=== PATIENT | female | born 1985 | race Caucasian/White ===

== ENCOUNTER 2017-12-15 03:44 | Inpatient (IN) | payer OTHER ==
[2017-12-15] MEDS ORDERED: OXYTOCIN 10 UNIT/ML 1 ML VIAL IM PRN (04:34)
[2017-12-15] MEDS ORDERED: LIDOCAINE 1% (PF) 10 MG/ML (30 ML SDV) SQ PRN (04:34)
[2017-12-15] MEDS ORDERED: CARBOPROST TROMETHAMINE 250 MCG/ML 1 ML AMP IM PRN (04:34)
[2017-12-15] MEDS ORDERED: AMPICILLIN 2,000 MG in SODIUM CHLORIDE 0.9% 100 ML IVPB STA (04:34)
[2017-12-15] MEDS ORDERED: TERBUTALINE 1 MG/ML VIAL SQ PRN (04:34)
[2017-12-15] MEDS ORDERED: METHYLERGONOVINE 0.2 MG/ML 1 ML AMP IM PRN (04:34)
[2017-12-15] MEDS ORDERED: OXYTOCIN 20 UNITS/1000 ML NS 1,000 ML IV SCH ×2 (04:45→16:30)
[2017-12-15 05:18] VITALS: BMI 25.7
[2017-12-15 05:18] LABS: Appearance,Urine Cloudy (Clear); Bilirubin,Urine Negative (Negative); Blood,Urine Trace (Negative); Color,Urine Yellow; Glucose,Urine (UA) Negative (Negative); Ketones,Urine Negative (Negative); Leukocyte Esterase,Urine Negative (Negative); Mucus,Urine Rare /hpf; Nitrite,Urine Negative (Negative); PH, Urine 6.5 (5.0-8.0); Protein,Urine Trace (Negative); RBC,Urine 1 /hpf (0-5); Specific Gravity,Urine 1.019 (1.001-1.035); Squamous Epithelial Cell,Urine 7 /hpf (0-4); Urobilinogen,Urine <2.0 mg/dL (<2.0); WBC,Urine 2 /hpf (0-5)
[2017-12-15 05:22] LABS: Amphetamine Screen,Urine Detected (NotDetected); Barbiturate Screen,Urine Not Detected (NotDetected); Benzodiazepines Screen,Urine Not Detected (NotDetected); Cocaine Screen,Urine Not Detected (NotDetected); Methadone Screen, Urine Not Detected (NotDetected); Opiate Screen,Urine Not Detected (NotDetected); Oxycodone Screen, Urine Not Detected (NotDetected); Phencyclidine Screen,Urine Not Detected (NotDetected); Tricyclic Antidepressant,Urine Not Detected (NotDetected); Urn Cannabinoid Scrn Not Detected (NotDetected)
[2017-12-15 05:39] LABS: Basophils # (A) 0.1 k/uL (0-0.2); Basophils % (A) 1 %; Eosinophils # (A) 0.1 k/uL (0-0.7); Eosinophils % (A) 1 %; HCT 38.1 % (34.0-46.0); HGB 13.1 gm/dL (11.4-16.0); Lymphocytes # (A) 1.9 k/uL (1.0-4.8); Lymphocytes % (A) 24 %; MCH 32.8 pg (25.0-35.0); MCHC 34.4 g/dL (31.0-37.0); MCV 95.3 fL (80.0-100.0); Monocytes # (A) 0.6 k/uL (0-1.0); Monocytes % (A) 8 %; Neutrophils % (A) 63 %; Platelet Count 218 k/uL (150-450); RDW 13.2 % (11.5-15.5)
[2017-12-15] MEDS: LACTATED RINGERS 1,000 ML IV SCH ×2 (05:44→12:22)
--- NOTE | 2017-12-15 07:55 | P.HPOB ---
History of Present Illness H&P Date: 12/15/17 Chief Complaint: Rupture of membranes This is a 32-year-old female 1 para 0 with an estimated date of confinement of 01/03/2018, estimated gestational age of 37-2/7 weeks, who presented to labor and delivery with complaints of spontaneous rupture of membranes with clear fluid noted. She denies any regular contractions. She did receive some care at a clinic in [place] all she was incarcerated and for a couple visits after incarceration. She states all of her labs were normal during her . We did receive some records from her previous physician but there very difficult to read and many parts are blacked out so they are on readable. It appears her last visit there was an approximately 29 weeks. Obstetrical history: . Gynecologic history: She denies any history of sexual transmitted diseases. 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 She denies any other street drug use however her drug screen is positive for amphetamines and methamphetamines. She does deny using any of these drugs. Review of Systems Constitutional: Denies chills, Denies fever Eyes: denies blurred vision, denies pain Ears, nose, mouth and throat: Denies headache, Denies sore throat Cardiovascular: Denies chest pain, Denies shortness of breath Gastrointestinal: Denies abdominal pain, Denies diarrhea, Denies nausea, Denies vomiting Genitourinary: Reports pelvic pain, Reports , Denies dysuria, Denies hematuria Musculoskeletal: Reports low back pain Neurological: Denies numbness, Denies weakness Psychiatric: Denies anxiety, Denies depression Endocrine: Denies fatigue Past Medical History Past Medical History: No Reported History History of Any Multi-Drug Resistant Organisms: MRSA Date of last positivie culture/infection: 2016 MDRO Source:: right wrist Additional Past Surgical History / Comment(s): surgery in right wrist, MRSA r/t IV drug use. 2016 Past Anesthesia/Blood Transfusion Reactions: No Reported Reaction Past Psychological History: ADD/ADHD Smoking Status: Current every day smoker Past Alcohol Use History: None Reported Past Drug Use History: Heroin, IV Drug Use Additional Drug Use History / Comment(s): pt reports using for 6 months, but has been clean for the last 3 years. - Past Family History Mother Family Medical History: No Reported History Medications and Allergies Home Medications Medication Instructions Recorded Confirmed Type RX: Pnv No.95/Ferrous Fum/Folic AC 1 tab PO DAILY 12/15/17 12/15/17 History [ Multivitamin Tablet] Allergies Allergy/AdvReac Type Severity Reaction Status Date / Time No Known Allergies Allergy Verified 12/15/17 04:21 Exam Osteopathic Statement: *. No significant issues noted on an osteopathic structural exam other than those noted in the History and Physical/Consult. - Vital Signs Vital signs: Vital Signs Temp Pulse Resp BP Pulse Ox 12/15/17 05:08 16 12/15/17 05:06 97.0 F L 99 16 132/91 96 12/15/17 04:12 97.5 F L 86 16 132/85 100 Intake and Output 12/14/17 12/15/17 12/15/17 22:59 06:59 14:59 Other: Voiding Method Toilet # Voids 1 Weight 63.957 kg HEENT: Within normal limits Heart: Regular rate and rhythm Lungs: Clear to auscultation bilaterally Abdomen: Cervix: 1-1/2 cm/60-70%/-2 stationn positive amnisure on admission heart tones: Reactive Contractions: Irregular Results Result Diagrams: 12/15/17 05:15 12/15/17 05:15 Abnormal Lab Results - Last 24 Hours (Table) 12/15/17 12/15/17 Range/Units 04:50 04:50 Urine Appearance Cloudy H (Clear) Urine Protein Trace H (Negative) Urine Blood Trace H (Negative) Ur Squamous Epith Cells 7 H (0-4) /hpf Urine Mucus Rare H (None) /hpf Ur Amphetamines Screen Detected H (NotDetected) U Methamphetamines Scrn Detected H (NotDetected) Assessment and Plan (1) 37 weeks gestation of Current Visit: Yes Status: Acute Code(s): Z3A.37 - 37 WEEKS GESTATION OF SNOMED Code(s): 32858093 Plan: Admission for spontaneous rupture of membranes. Oxytocin augmentation of labor. Epidural anesthesia if desired. Will consult social work due to positive drug screen and limited care.
[2017-12-15] MEDS: BUTORPHANOL 1 MG/ML 1 ML VIAL IV PRN ×2 (08:24→10:45)
[2017-12-15] MEDS: AMPICILLIN 1,000 MG in SODIUM CHLORIDE 0.9% 50 ML IVPB SCH ×2 (08:52→13:58)
[2017-12-15] MEDS ORDERED: fentaNYL (PF) 50 MCG/ML 5 ML AMP ONE (12:00)
[2017-12-15] MEDS ORDERED: SODIUM CHLORIDE 0.9% 100 ML BAG ONE (12:00)
[2017-12-15] MEDS ORDERED: BUPIVACAINE (PF) 0.25% 30 ML VIAL ONE (12:00)
[2017-12-15] MEDS ORDERED: ROPIVACAINE 100 MG, fentaNYL (PF) 200 MCG in SODIUM CHLORIDE 0.9% 76 ML EPIDURAL ONE (12:09)
[2017-12-15 13:24] LABS: HIV AB P24 Non-Reactive (Non-Reactive); HIV P24 AG Non-Reactive (Non-Reactive)
[2017-12-15] MEDS ORDERED: WITCH HAZEL 1 EACH MED..PAD TOPICAL PRN (16:28)
[2017-12-15] MEDS ORDERED: HYDROCORTISONE 2.5% RECTAL CREAM 30 GM TUBE RECTAL PRN (16:28)
[2017-12-15] MEDS ORDERED: diphenhydrAMINE 50 MG/ML 1 ML VIAL IVP PRN ×2 (16:28)
[2017-12-15] MEDS ORDERED: ZOLPIDEM 5 MG TAB PO PRN (16:28)
[2017-12-15] MEDS ORDERED: ACETAMINOPHEN TAB 325 MG TAB PO PRN (16:28)
[2017-12-15] MEDS ORDERED: diphenhydrAMINE 25 MG CAP PO PRN (16:28)
[2017-12-15] MEDS ORDERED: SIMETHICONE 80 MG CHEWABLE PO PRN (16:28)
[2017-12-15] MEDS ORDERED: LANOLIN CREAM 5 GM TUBE TOPICAL PRN (16:28)
[2017-12-15] MEDS ORDERED: diphenhydrAMINE 50 MG CAP PO PRN (16:28)
[2017-12-15] MEDS ORDERED: BENZOCAINE/MENTHOL SPRAY 1 GM/SPRAY AEROSOL TOPICAL PRN (16:28)
[2017-12-15] MEDS: IBUPROFEN 600 MG TAB PO PRN (19:15)
[2017-12-15] MEDS: SENNOSIDES-DOCUSATE SODIUM 1 EACH TAB PO SCH (20:04)
--- NOTE | 2017-12-15 21:14 | P.PROBDLV ---
Vaginal Delivery Note - . Vaginal Delivery Note: 32-year-old presented at 37 weeks and 2 days with spontaneous rupture of membranes at 3 AM. Her cervix was 1 cm dilated, 50% effaced, -3 station. Fluid was clear. She's not miguel. heart tones 130-135 with moderate variability and reactive. Pitocin augmentation was started. As the patient did not have care in the last few months of her the GBS is unknown and ampicillin was started for GBS prophylaxis. When the patient was about 2 cm dilated she did get some Stadol. When she was very comfortable she got an epidural for pain management. Her cervix was completely dilated at 1520. She pushed, delivered a viable female infant over intact perineum under epidural anesthesia at 1608. Head delivered OA, anterior shoulder which was the left shoulder delivered gentle downward traction followed by posterior shoulder and rest of body. Nose and mouth bulb suctioned , cord clamped and cut, infant placed on mother's abdomen. Apgars 9, 9, weight 5 lbs. 12 oz. Placenta delivered spontaneously, intact with three-vessel cord at 1609. Vagina, cervix, perineum inspected. First-degree midline laceration was repaired with 3-0 Vicryl. Estimated blood loss 200 mL. Mother and baby in stable condition.
[2017-12-15] MEDS ORDERED: NICOTINE 14MG/24HR PATCH TRANSDERM STA (21:31)
[2017-12-16] MEDS: IBUPROFEN 600 MG TAB PO PRN ×3 (04:05→21:34)
--- NOTE | 2017-12-16 06:57 | P.DS ---
Providers Date of admission: 12/15/17 04:12 Expected date of discharge: 12/16/17 Attending physician: Wendy Wilkins Primary care physician: Stated None - Discharge Diagnosis(es) (1) Normal vaginal delivery Current Visit: Yes Status: Acute Hospital Course: Pt presented with SROM. She underwent a normal vaginal with pitocin augmentation. Her pp course was uncomplicated. She will be discharged home PPD #1 in stable condition to follow up with me in 6 weeks. Plan - Discharge Summary New Discharge Prescriptions: New Ibuprofen [Motrin] 600 mg PO Q6HR PRN #30 tab PRN Reason: Mild Pain Or Fever >= 100.5 No Action Pnv No.95/Ferrous Fum/Folic AC [ Multivitamin Tablet] 1 tab PO DAILY Discharge Medication List Pnv No.95/Ferrous Fum/Folic AC [ Multivitamin Tablet] 1 tab PO DAILY 05/24 [History] Ibuprofen [Motrin] 600 mg PO Q6HR PRN #30 tab 12/16/17 [Rx] Follow up Appointment(s)/Referral(s): Honey Brantley DO [Doctor of Osteopathic Medicine] - 6 Weeks Discharge Disposition: HOME SELF-CARE
[2017-12-16] MEDS: SENNOSIDES-DOCUSATE SODIUM 1 EACH TAB PO SCH ×2 (08:29→20:29)
[2017-12-16 13:11] LABS: N. gonorrhoeae,PCR Negative (Neg,Equiv); Neisseria Source Urine
[2017-12-16 13:15] LABS: C. trachomatis,PCR Negative (Neg,Equiv); Chlamydia trachomatis Source Urine
[2017-12-17 09:13] VITALS: BP 113/69; PULSE 73; RESP 18; TEMP 98.6
[2017-12-17] MEDS: SENNOSIDES-DOCUSATE SODIUM 1 EACH TAB PO SCH (09:32)
== END 2017-12-17 11:28 | disposition home or self-care (01) | DRG 775 ==
LOC: FBPOP 03:44 → 4FBP 04:12
PROVIDERS: ADMIT Obstetrics & Gynecology; ATTEND Obstetrics & Gynecology
PROC: 3E0R3NZ Introduction of Analgesics, Hypnotics, Sedatives into Spinal Canal, Percutaneous Approach (ICD-10-PCS; principal; 2017-12-15)
PROC: 10E0XZZ Delivery of Products of Conception, External Approach (ICD-10-PCS; principal; 2017-12-15)
PROC: 00HU33Z Insertion of Infusion Device into Spinal Canal, Percutaneous Approach (ICD-10-PCS; principal; 2017-12-15)
PROC: 0HQ9XZZ Repair Perineum Skin, External Approach (ICD-10-PCS; principal; 2017-12-15)
DX: O42.02 Full-term premature rupture of membranes, onset of labor within 24 hours of rupture (principal); O70.0 First degree perineal laceration during delivery; O99.334 Smoking (tobacco) complicating childbirth; F17.200 Nicotine dependence, unspecified, uncomplicated; Z3A.37 37 weeks gestation of pregnancy; Z86.14 Personal history of Methicillin resistant Staphylococcus aureus infection; Z37.0 Single live birth
CPT/HCPCS: 59025; 80306; 81001; 82947; 84112; 85025; 86762; 86780; 86850; 86900; 86901; 87340; 87390; 87491; 87591; 88307; 99213